=== PATIENT | female | born 1930 | race Caucasian/White ===

== ENCOUNTER 2017-03-25 06:08 | Day surgery (SDC) | payer MEDICARE, OTHER ==
[2017-03-25] MEDS ORDERED: Lactated Ringers 1,000 ML IV SCH (07:00)
[2017-03-25] MEDS ORDERED: Ketamine HCl 50 MG/ML IJ ONE (08:00)
[2017-03-25] MEDS ORDERED: DIPRIVAN 200 MG/20 ML IV ONE (08:00)
[2017-03-25] MEDS ORDERED: BREVIBLOC 100 MG/10 ML IV ONE (08:00)
--- NOTE | 2017-03-25 09:49 | OP ---
SURGERY DATE/TIME: 03/25/2017 07 PREOPERATIVE DIAGNOSIS: Diarrhea, heme-positive stools and weight loss. POSTOPERATIVE DIAGNOSIS: Godfrey-colitis. PROCEDURE: Colonoscopy with biopsy. SURGEON: Dr. Vinson. ANESTHESIA: MAC. Medications given by anesthesia department. HISTORY: The patient is an 86 year-old white female reporting that she has diarrhea every time she eats. She has been losing some weight and had been found to have heme-positive stools. The patient was felt to need to have endoscopic evaluation. She was appraised of the risks of the procedure including the risk of perforation, phlebitis, untoward reaction to medication, bleeding, and missed lesions. The patient verbalized her understanding and desired to have the procedure performed. DESCRIPTION OF PROCEDURE: The patient was given the medications by the anesthesia department. She had continuous pulse oximetry, ECG monitoring, intermittent blood pressure monitoring, and tidal CO2 monitoring during the examination. She was placed in the left lateral decubitus position. A digital rectal examination was performed and revealed normal anal sphincter tone and no masses. The flexible Olympus pediatric colonoscope was used to intubate the rectum. A view of the colon was developed sequentially to the cecum including a short distance into the terminal ileum. Upon insertion and withdrawal, including a retroflex view in the rectum was noted godfrey-colitis. Biopsies were obtained from random areas to rule out underlying dysplasia and to confirm the presence of what was felt to likely be ulcerative colitis. The scope was then removed from the patient who tolerated the procedure well and was sent back to OP recovery in good condition.
[2017-03-25 18:09] VITALS: O2SAT 97
[2017-03-25 18:12] VITALS: BP 141/74; PULSE 104
== END 2017-03-25 10:05 | disposition home or self-care (01) ==
LOC: SDC 06:08
PROVIDERS: ATTEND Family Medicine
PROC: 0DBG8ZX Excision of Left Large Intestine, Via Natural or Artificial Opening Endoscopic, Diagnostic (ICD-10-PCS; principal; 2017-03-25)
PROC: 0DBF8ZX Excision of Right Large Intestine, Via Natural or Artificial Opening Endoscopic, Diagnostic (ICD-10-PCS; 2017-03-25)
DX: K51.00 Ulcerative (chronic) pancolitis without complications (principal); R19.5 Other fecal abnormalities
CPT/HCPCS: 00810; 36415; 99100; J2704